=== PATIENT | male | born 1995 | race American Indian/Alaskan Native ===

== ENCOUNTER 2016-09-16 20:11 | Emergency (ER) | payer SELFPAY ==
[2016-09-16 20:35] VITALS: BP 122/80
== END 2016-09-16 20:32 | disposition left against medical advice (07) ==
LOC: ED 20:11
DX: R68.84 Jaw pain (principal); Z53.21 Procedure and treatment not carried out due to patient leaving prior to being seen by health care provider

== ENCOUNTER 2016-09-17 15:06 | Emergency (ER) | payer SELFPAY ==
[2016-09-17] MEDS ORDERED: TORADOL IM ONE (21:02)
--- NOTE | 2016-09-17 21:04 | Emergency Department Report ---
ED ENT HPI - General Chief complaint: Dental/Oral Stated complaint: POSS JAW FRACTURE Time Seen by Provider: 09/17/16 21:00 Source: patient Mode of arrival: Ambulatory Limitations: No Limitations - History of Present Illness Initial comments: Patient reports swelling to the right jaw that started 4 days ago after tussling with a family member. complaint: trauma/injury (right jaw) Onset/Timin -: days(s) Location: other (right jaw) Severity: severe Severity scale (0 -10): 10 Quality: aching Consistency: constant Improves with: none Worsens with: swallowing, other (opening mouth) Context-Epistaxis: other (none) Context- Dental: trauma Context- Ear: other (none) Associated Symptoms: other (right jaw pain with swelling). denies: fever, cough , gum swelling, toothache, pain with swallowing, sore throat, tinnitus, hearing loss, discharge from ear, rhinorrhea - Related Data Previous Rx's Medication Instructions Recorded Last Taken Type Ibuprofen [Motrin 800 MG tab] 800 mg PO Q8HR PRN #30 tablet 09/17/16 Unknown Rx Allergies Allergy/AdvReac Type Severity Reaction Status Date / Time No Known Allergies Allergy Verified 09/17/16 15:44 ED Dental HPI - General Chief complaint: Dental/Oral Stated complaint: POSS JAW FRACTURE Source: patient Mode of arrival: Ambulatory Limitations: No Limitations - Related Data Previous Rx's Medication Instructions Recorded Last Taken Type Ibuprofen [Motrin 800 MG tab] 800 mg PO Q8HR PRN #30 tablet 09/17/16 Unknown Rx Allergies Allergy/AdvReac Type Severity Reaction Status Date / Time No Known Allergies Allergy Verified 09/17/16 15:44 ED Review of Systems ROS: Stated complaint: POSS JAW FRACTURE Other details as noted in HPI Constitutional: denies: chills, diaphoresis, fever, weakness Eyes: denies: eye pain, eye discharge, vision change ENT: other (right jaw swelling and pain). denies: ear pain, throat pain, dental pain, hearing loss, epistaxis Respiratory: denies: cough, orthopnea, shortness of breath, SOB with exertion, SOB at rest, stridor, wheezing Cardiovascular: denies: chest pain, palpitations, dyspnea on exertion, orthopnea , edema, syncope, paroxysmal nocturnal dyspnea Hematological/Lymphatic: denies: easy bleeding, easy bruising, swollen glands ED Past Medical Hx - Past Medical History Previous Medical History?: No - Surgical History Past Surgical History?: No - Social History Smoking Status: Current Every Day Smoker Substance Use Type: None - Medications Home Medications: Home Medications Medication Instructions Recorded Confirmed Last Taken Type Ibuprofen [Motrin 800 MG tab] 800 mg PO Q8HR PRN #30 tablet 09/17/16 Unknown Rx ED Physical Exam - General Limitations: No Limitations General appearance: alert, in no apparent distress - Head Head exam: Present: atraumatic, normocephalic, normal inspection - Eye Eye exam: Present: normal appearance, PERRL, EOMI. Absent: scleral icterus, conjunctival injection, nystagmus, periorbital swelling, periorbital tenderness Pupils: Present: normal accommodation - ENT ENT exam: Present: mucous membranes moist, TM's normal bilaterally, normal external ear exam, other (right facial asymmetry, swelling and tenderness with palpation to the right jaw, no ecchymosis). Absent: mucous membranes dry - Expanded ENT Exam Expanded Ear exam: Present: normal external inspection. Absent: auricular hematoma, auricular trauma Mouth exam: Present: normal external inspection, tongue normal, other (positive tongue blade test). Absent: drooling, trismus, muffled voice, tongue elevation , laceration Teeth exam: Present: other (misalignment of teeth on the right dentition, no step-off, protrusion or lateral excursion of the right jaw) Throat exam: Positive: normal inspection. Negative: tonsillar erythema, tonsillomegaly, tonsillar exudate, R peritonsillar mass, L peritonsillar mass - Neck Neck exam: Present: normal inspection, full ROM. Absent: tenderness, meningismus, lymphadenopathy, thyromegaly - Respiratory Respiratory exam: Present: normal lung sounds bilaterally. Absent: respiratory distress, wheezes, rales, rhonchi, stridor, chest wall tenderness, accessory muscle use, decreased breath sounds, prolonged expiratory - Cardiovascular Cardiovascular Exam: Present: regular rate, normal rhythm, normal heart sounds. Absent: systolic murmur, diastolic murmur, rubs, gallop, clicks, JVD, S3, S4 - Skin Skin exam: Present: warm, dry, intact, normal color. Absent: rash, cyanosis, diaphoretic, erythema, urticaria, vesicles, petechiae, pallor, abrasion, ecchymosis ED Course Vital Signs 09/17/16 09/17/16 09/17/16 15:38 20:28 21:28 Temperature 98.9 F Pulse Rate 70 Respiratory 16 18 18 Rate Blood Pressure 118/80 Blood Pressure [Left] O2 Sat by Pulse 99 97 Oximetry 09/17/16 23:15 Temperature 99.0 F Pulse Rate 60 Respiratory 20 Rate Blood Pressure Blood Pressure 113/69 [Left] O2 Sat by Pulse 100 Oximetry - Reevaluation(s) Reevaluation #1: 09/17/16 21:03 analgesic and radiology study ordered ED Medical Decision Making - Radiology Data Radiology results: image reviewed EXAM: CT FACIAL BONES WO CON HISTORY: right jaw with pain/swelling/wrestling TECHNIQUE: Spiral CT scanning of the facial bones with multiplanar reformations. PRIORS: None. FINDINGS: No acute fracture. Mandible, zygomatic arches, orbits, paranasal sinuses, and pterygoid plates appear intact. Optic globes grossly intact. Diffuse soft tissue edema or contusion over the right mandible. IMPRESSION: 1. No acute fracture. - Medical Decision Making During the course of ED, analgesics and radiology studies were ordered. The imaging study revealed Diffuse soft tissue edema or contusion over the right mandible. No acute fracture. Patient reports symptomatic relief from medication given in the ED. He was sent home with prescription for Ibuprofen, instructed to follow with selective referrals given at discharge, he verbalize understanding - Differential Diagnosis Right mandible contusion, Right mandible fracture Critical care attestation.: If time is entered above; I have spent that time in minutes in the direct care of this critically ill patient, excluding procedure time. ED Disposition Clinical Impression: Contusion of mandibular joint area Qualifiers: Encounter type: initial encounter Qualified Code(s): S00.83XA - Contusion of other part of head, initial encounter Disposition: DISCHARGED TO HOME OR SELFCARE Is pt being admited?: No Does the pt Need Aspirin: No Condition: Stable Instructions: Contusion in Adults (ED) Additional Instructions: Take medication as directed. Follow up with the selective referrals given at discharge. Return back to the ED for worsening symptoms or concerns Prescriptions: Ibuprofen [Motrin 800 MG tab] 800 mg PO Q8HR PRN #30 tablet PRN Reason: Pain Referrals: KIANNA VELEZ MD [Primary Care Provider] - 3-5 Days MICHAEL SALDIVAR MD [Staff Physician] - 3-5 Days EMMA OLMOS MD [Staff Physician] - 3-5 Days Forms: Work/School Release Form(ED) Time of Disposition: 23:10
--- NOTE | 2016-09-17 22:29 | Cat Scan Report ---
FINAL REPORT EXAM: CT FACIAL BONES WO CON HISTORY: right jaw with pain/swelling/wrestling TECHNIQUE: Spiral CT scanning of the facial bones with multiplanar reformations. PRIORS: None. FINDINGS: No acute fracture. Mandible, zygomatic arches, orbits, paranasal sinuses, and pterygoid plates appear intact. Optic globes grossly intact. Diffuse soft tissue edema or contusion over the right mandible. IMPRESSION: 1. No acute fracture.
[2016-09-17 23:32] VITALS: BP 113/69
== END 2016-09-17 23:34 | disposition home or self-care (01) ==
LOC: ED 15:06
DX: S00.83XA Contusion of other part of head, initial encounter (principal); F17.200 Nicotine dependence, unspecified, uncomplicated; X58.XXXA Exposure to other specified factors, initial encounter; Y93.9 Activity, unspecified; Y92.9 Unspecified place or not applicable; Y99.9 Unspecified external cause status
CPT/HCPCS: 70486; 96372; 99283; J1885

== ENCOUNTER 2017-06-04 02:35 | Emergency (ER) | payer SELFPAY ==
[2017-06-04 06:44] LABS: Basophils % (Auto) 0.9 % (0.0-1.8); Eosinophils % (Auto) 2.1 % (0.0-4.3); Hematocrit 43.5 % (35.5-45.6); Hemoglobin 14.1 gm/dl (11.8-15.2); Mean Corpuscular HGB Conc 32 % (32-34); Mean Corpuscular Hemoglobin 29 pg (28-32); Mean Corpuscular Volume 90 fl (84-94); Platelet Count 243 K/mm3 (140-440); Red Blood Count 4.82 M/mm3 (3.65-5.03); Red Cell Distribution Width 13.5 % (13.2-15.2); White Blood Count 4.7 K/mm3 (4.5-11.0)
[2017-06-04 07:01] LABS: Blood Urea Nitrogen 15 mg/dL (9-20); Calcium 9.4 mg/dL (8.4-10.2); Carbon Dioxide 30 mmol/L (22-30); Creatine Kinase 147 units/L (55-170); Glucose 94 mg/dL (75-100)
[2017-06-04 07:02] LABS: Anion Gap 17 mmol/L; Chloride 102.2 mmol/L (98-107); Potassium 4.7 mmol/L (3.6-5.0); Sodium 144 mmol/L (137-145)
--- NOTE | 2017-06-04 08:20 | Emergency Department Report ---
HPI - General Chief Complaint: Chest Pain Time Seen by Provider: 06/04/17 08:10 - [facility] HPI: Room 29 The patient is a 21-year-old male presenting with a chief complaint of chest pain. The patient states for the past 2 months he's had intermittent pain across his chest has been sharp in nature. Patient states he mostly notices the pain whenever he is smoking. Patient states he has a pain daily ( approximately 2-3 times a day) intermittently for 2 months. Patient denies shortness of breath, nausea/vomiting or cough. Patient currently denies chest pain Location: Chest Duration: Intermittent 2 months Quality: Sharp Severity: Currently 0/10 Modifying factors: [see above] Context: [see above] Mode of transportation: Unknown ED Past Medical Hx - Past Medical History Previous Medical History?: No - Surgical History Past Surgical History?: No - Family History Family history: no significant - Social History Smoking Status: Current Every Day Smoker (1 pack per day) Substance Use Type: None (denies illicit drug use), Alcohol (rarely) - Medications Home Medications: Home Medications Medication Instructions Recorded Confirmed Last Taken Type Ibuprofen [Motrin 800 MG tab] 800 mg PO Q8HR PRN #30 tablet 09/17/16 Unknown Rx Ibuprofen [Motrin 800 MG tab] 800 mg PO Q8HR PRN #20 tablet 06/04/17 Unknown Rx ED Review of Systems ROS: Stated complaint: CP Other details as noted in HPI Comment: All other systems reviewed and negative Constitutional: denies: chills, fever Eyes: denies: eye pain, eye discharge, vision change ENT: denies: ear pain, throat pain Respiratory: denies: cough, shortness of breath, wheezing Cardiovascular: chest pain. denies: palpitations Endocrine: no symptoms reported Gastrointestinal: denies: abdominal pain, nausea, diarrhea Genitourinary: denies: urgency, dysuria Musculoskeletal: denies: back pain, joint swelling, arthralgia Skin: denies: rash, lesions Neurological: denies: headache, weakness, paresthesias Psychiatric: denies: anxiety, depression Hematological/Lymphatic: denies: easy bleeding, easy bruising Physical Exam - Physical Exam Vital Signs: Vital Signs 06/04/17 06/04/17 02:54 05:50 Temperature 97.8 F 97.6 F Pulse Rate 58 L 54 L Respiratory 18 16 Rate Blood Pressure 113/76 Blood Pressure 103/53 [Left] O2 Sat by Pulse 99 100 Oximetry Physical Exam: GENERAL: The patient is well-developed well-nourished male lying on stretcher asleep not appearing to be in acute distress. Patient awakens easily and becomes alert and oriented HEENT: Normocephalic. Atraumatic. Extraocular motions are intact. Patient has moist mucous membranes. NECK: Supple. Trachea midline CHEST/LUNGS: Clear to auscultation. There is no respiratory distress noted. HEART/CARDIOVASCULAR: Regular. There is no tachycardia. There is no gallop rub or murmur. ABDOMEN: Abdomen is soft, nontender. Patient has normal bowel sounds. There is no abdominal distention. SKIN: There is no rash. There is no edema. There is no diaphoresis. NEURO: The patient is awake, alert, and oriented. The patient is cooperative. The patient has normal speech MUSCULOSKELETAL: There is no evidence of acute injury. ED Course Vital Signs 06/04/17 06/04/17 02:54 05:50 Temperature 97.8 F 97.6 F Pulse Rate 58 L 54 L Respiratory 18 16 Rate Blood Pressure 113/76 Blood Pressure 103/53 [Left] O2 Sat by Pulse 99 100 Oximetry ED Medical Decision Making - Lab Data Result diagrams: 06/04/17 06:14 06/04/17 06:14 Laboratory Tests 06/04/17 06/04/17 06/04/17 06:14 06:14 08:23 WBC 4.7 RBC 4.82 Hgb 14.1 Hct 43.5 MCV 90 MCH 29 MCHC 32 RDW 13.5 Plt Count 243 Lymph % (Auto) 38.6 H [place] % (Auto) 10.4 H Eos % (Auto) 2.1 Baso % (Auto) 0.9 Lymph # 1.8 [place] # 0.5 Eos # 0.1 Baso # 0.0 Seg Neutrophils % 48.0 Seg Neutrophils # 2.3 D-Dimer < 135.00 Carbon Dioxide 30 BUN 15 Creatinine 1.0 Estimated GFR > 60 BUN/Creatinine Ratio 15.00 Glucose 94 Calcium 9.4 Total Creatine Kinase 147 Troponin T < 0.010 Sodium 144, potassium 4.7, chloride 102.2 - EKG Data -: EKG Interpreted by Mo EKG shows normal: sinus rhythm Rate: normal - EKG Data When compared to previous EKG there are: previous EKG unavailable Interpretation: other (no ischemic changes seen) - Radiology Data Radiology results: image reviewed (chest x-ray) interpreted by me: Chest x-ray-no focal infiltrates, no pneumothorax - Differential Diagnosis PE, pneumonia, pleurisy, costochondritis, ACS, GERD Critical care attestation.: If time is entered above; I have spent that time in minutes in the direct care of this critically ill patient, excluding procedure time. ED Disposition Clinical Impression: Atypical chest pain Disposition: - TO HOME OR SELFCARE Is pt being admited?: No Does the pt Need Aspirin: No Condition: Stable Instructions: Chest Pain (ED), Costochondritis (ED) Additional Instructions: Return to the emergency department immediately should you develop worsening symptoms, fever, inability to tolerate food or liquid or any other concerns. Prescriptions: Ibuprofen [Motrin 800 MG tab] 800 mg PO Q8HR PRN #20 tablet PRN Reason: Pain Referrals: GUMARO HUDSON MD [Staff Physician] - 3-5 Days Time of Disposition: 09:25
--- NOTE | 2017-06-04 08:58 | XRay Report ---
CHEST 2 VIEWS INDICATION: Chest pain. COMPARISON: None similar. FINDINGS: PA and lateral chest radiographs demonstrate normal cardiomediastinal silhouette. Clear lungs. Thoracic spine straightening. CONCLUSION: No acute disease in the chest. Thank you for the opportunity to participate in this patient's care.
[2017-06-04 09:37] VITALS: BP 103/65
== END 2017-06-04 09:38 | disposition home or self-care (01) ==
LOC: ED 02:35
DX: R07.89 Other chest pain (principal); F17.200 Nicotine dependence, unspecified, uncomplicated
CPT/HCPCS: 36415; 71020; 80048; 82550; 84484; 85025; 85379; 93005; 93010

== ENCOUNTER 2017-06-30 23:34 | Emergency (ER) | payer SELFPAY ==
--- NOTE | 2017-07-01 06:27 | Emergency Department Report ---
HPI - General Chief Complaint: Extremity Injury, Upper Time Seen by Provider: 07/01/17 05:20 - HPI HPI: There is a 21-year-old male who presents to ED for cast removal status post fracture of his right fourth and fifth metacarpal bone. Patient states he was sitting on [place] 4 days ago and was told he had a fracture of his fourth and fifth digit WAS applied. Patient states he has not followed up with orthopedic doctor. Patient states he would like to have the cast removed He denies any recent injuries to the hand. He denies fevers/chills/nausea/ vomiting in the problems ED Past Medical Hx - Past Medical History Previous Medical History?: No - Surgical History Past Surgical History?: No - Social History Smoking Status: Current Every Day Smoker Substance Use Type: None - Medications Home Medications: Home Medications Medication Instructions Recorded Confirmed Last Taken Type Ibuprofen [Motrin 800 MG tab] 800 mg PO Q8HR PRN #20 tablet 06/04/17 Unknown Rx Cyclobenzaprine [Flexeril] 10 mg PO QHS PRN #20 tablet 07/01/17 Unknown Rx Ibuprofen [Motrin 800 MG tab] 800 mg PO Q8HR PRN #30 tablet 07/01/17 Unknown Rx ED Review of Systems ROS: Stated complaint: R WRIST INJURY Other details as noted in HPI Constitutional: denies: chills, fever Eyes: denies: eye pain, eye discharge, vision change ENT: denies: ear pain, throat pain Respiratory: denies: cough, shortness of breath, wheezing Cardiovascular: denies: chest pain, palpitations Endocrine: no symptoms reported Gastrointestinal: denies: abdominal pain, nausea, diarrhea Genitourinary: denies: urgency, dysuria Musculoskeletal: arthralgia, myalgia. denies: back pain, joint swelling Skin: denies: rash, lesions Neurological: denies: headache, weakness, paresthesias Psychiatric: denies: anxiety, depression Hematological/Lymphatic: denies: easy bleeding, easy bruising Physical Exam - Physical Exam Vital Signs: Vital Signs 07/01/17 00:04 Temperature 98.1 F Pulse Rate 79 Respiratory 20 Rate Blood Pressure 121/75 O2 Sat by Pulse 99 Oximetry Physical Exam: GENERAL: Alert and oriented x3, no apparent distress, Normal Gait, atraumatic. HEAD: Head is normocephalic and a-traumatic. NECK: Supple. Non edematous, No carotid bruits. No lymphadenopathy or thyromegaly. No C-spine tenderness LUNGS: Symetrical with respiration, No wheezing, no rales or crackles, CTAB. HEART: S1, S2 present, regular rate and rhythm without murmur, no rubs, no gallops. Non tender to palpation EXTREMITIES/MUSCULOSKELETAL: No cyanosis, clubbing, rash, lesions or edema. Full ROM bilaterally. OCL cast seen on right hand. Nonedematous, patient couldn't wiggle fingers and move his hand without problem NEUROLOGIC: The patient is cooperative with no focal neurologic deficits. Cranial nerves II through XII are grossly intact. Normal speech. Normal sensation in bilateral upper and lower extremities, No loss of sensation, SKIN: Warm and dry, No lesions, No ulceration or induration present. ED Course Vital Signs 07/01/17 00:04 Temperature 98.1 F Pulse Rate 79 Respiratory 20 Rate Blood Pressure 121/75 O2 Sat by Pulse 99 Oximetry ED Medical Decision Making - Medical Decision Making 21-year-old male presents status post hand fracture 4 days ED course: Discussed patient is to follow-up with Orthopedic doctor. Discussed patient to continue taking the medications as prescribed. Discussed with patient OCL cast cannot be taken off until seen by orthopedic doctor. Vital signs are normal patient is able to wiggle finger cast, capillary refill 2 seconds. Patient understands instructions given and states he will follow up Critical care attestation.: If time is entered above; I have spent that time in minutes in the direct care of this critically ill patient, excluding procedure time. ED Disposition Clinical Impression: Boxer's fracture with routine healing Qualifiers: Fracture type: closed Qualified Code(s): S62.339D - Displaced fracture of neck of unspecified metacarpal bone, subsequent encounter for fracture with routine healing Disposition: DC-01 TO HOME OR SELFCARE Is pt being admited?: No Does the pt Need Aspirin: No Condition: Stable Instructions: Cast Care (ED), Hand Fracture (ED) Additional Instructions: Make sure that you should follow-up with Dr. Rendon orthopedic doctor Continue to keep hand elevated and ice as needed Prescriptions: Cyclobenzaprine [Flexeril] 10 mg PO QHS PRN #20 tablet PRN Reason: Muscle Spasm Ibuprofen [Motrin 800 MG tab] 800 mg PO Q8HR PRN #30 tablet PRN Reason: Pain Referrals: PRIMARY CAREMD [Primary Care Provider] - 3-5 Days KRISTIE RENDON MD [Staff Physician] - 3-5 Days Forms: Work/School Release Form(ED) Time of Disposition: 06:30
[2017-07-01 07:24] VITALS: BP 108/59
--- NOTE | 2017-07-01 07:29 | XRay Report ---
RIGHT WRIST, 3 VIEWS: History: wrist pain, injury. No comparison. A posterior bandage has been applied which degrades bony detail. There is severe soft tissue swelling on the dorsum of the hand. Abnormality is suspected at the base of the fourth metacarpal. There may be posterior subluxation of the fourth metatarsal base with respect to the hamate bone. Subtle fracture lines are suggested at the fourth metatarsal base on one of the projections. The remaining bony structures and joint spaces are unremarkable. IMPRESSION: Limited exam with non-standard views and bandages. Abnormality at the fourth metacarpal base is suspected. Consider repeat exam without bandages and standard views or CT. See above.
== END 2017-07-01 07:23 | disposition home or self-care (01) ==
LOC: ED 23:34
DX: S62.101A Fracture of unspecified carpal bone, right wrist, initial encounter for closed fracture (principal); F17.210 Nicotine dependence, cigarettes, uncomplicated; X58.XXXA Exposure to other specified factors, initial encounter; Y93.89 Activity, other specified; Y92.89 Other specified places as the place of occurrence of the external cause; Y99.8 Other external cause status
CPT/HCPCS: 99283

== ENCOUNTER 2017-07-28 01:09 | Emergency (ER) | payer SELFPAY ==
[2017-07-28 01:24] VITALS: BP 118/71
--- NOTE | 2017-07-28 03:56 | Emergency Department Report ---
Upper Extremity - HPI Chief Complaint: Extremity Injury, Upper Stated Complaint: ABD PAIN & R HAND PAIN Time Seen by Provider: 07/28/17 03:55 Upper Extremity: Right Hand (right hand fracture 1 month ago) Occurred When: >5 Days Symptoms: Yes Pain with Movement, No Deformity, No Limited Range of Movement, No Numbness, No Weakness, No Swelling Other History: 21-year-old male past medical history none presents with complaint of one month of right hand pain. Patient states that he was diagnosed with a knuckle fracture approximately one month ago states that he removed his splint/cast prematurely and has been experiencing continual pain in his fifth metacarpal region for several weeks. Patient denies any other injuries. States he is able to flex and extend wrist and move most fingers well without difficulty except for his fifth MCP region. Some visible swelling in this area. Has not followed up with orthopedics or primary care. States he received care at another hospital. ED Review of Systems ROS: Stated complaint: ABD PAIN & R HAND PAIN Other details as noted in HPI Constitutional: denies: chills, fever Eyes: denies: eye pain, eye discharge, vision change ENT: denies: ear pain, throat pain Respiratory: denies: cough, shortness of breath, wheezing Cardiovascular: denies: chest pain, palpitations Endocrine: no symptoms reported Gastrointestinal: denies: abdominal pain, nausea, diarrhea Genitourinary: denies: urgency, dysuria Musculoskeletal: as per HPI (right hand pain one month). denies: back pain, joint swelling, arthralgia Skin: denies: rash, lesions Neurological: denies: headache, weakness, paresthesias Psychiatric: denies: anxiety, depression Hematological/Lymphatic: denies: easy bleeding, easy bruising ED Past Medical Hx - Past Medical History Previous Medical History?: No - Surgical History Past Surgical History?: No - Social History Smoking Status: Current Every Day Smoker Substance Use Type: Alcohol - Medications Home Medications: Home Medications Medication Instructions Recorded Confirmed Last Taken Type Ibuprofen [Motrin 800 MG tab] 800 mg PO Q8HR PRN #20 tablet 06/04/17 Unknown Rx Cyclobenzaprine [Flexeril] 10 mg PO QHS PRN #20 tablet 07/01/17 Unknown Rx Ibuprofen [Motrin 800 MG tab] 800 mg PO Q8HR PRN #30 tablet 10/19/17 Unknown Rx Naproxen 500 mg PO BID PRN #30 tablet 07/28/17 Unknown Rx Upper Extremity Exam - Exam General: Vital signs noted. No distress. Alert and acting appropriately. Head and Torso: No HEENT Abnormality, No Neck Tenderness, No Chest/Lungs Abnormality, No Abdominal Tenderness, No Back Tenderness Shoulder Exam: Yes Normal Range of Motion in Shoulder, No Shoulder Tenderness, No Clavicle Tenderness, No Shoulder Deformity, No AC Joint Tenderness Arm Exam: No Arm/Humerus Tenderness, No Arm Deformity Elbow: No Elbow Tenderness, No Normal Range of Motion in Elbow, No Elbow Deformity Forearm: No Forearm Tenderness, No Forearm Deformity, No Pain with Pronation, No Pain with Supination Wrist: Yes Normal ROM in Wrist (wrist flexion and extension intact), No Wrist Tenderness, No Wrist Deformity, No Snuffbox Tenderness, No Pain with Axial Thumb Compression Hand: Yes Normal ROM in Digit(s) (range of motion DIP is PIPs and MCPs intact on exam), No Hand Tenderness (some tenderness at right distal MCP joint fifth metacarpal), No Hand Deformity, No Digit Tenderness, No Digit(s) Deformity, No Tendon Dysfunction CMS Exam: Yes Normal Distal Pulses (distal capillary refill all fingers less than 1 second, distal radial and ulnar pulses intact, distal sensation intact all fingers), Yes Normal Capillary Refill, Yes Normal Distal Sensation, No Broken Skin Hand L/R Back: 1 - Some discomfort on palpation here ED Course Vital Signs 07/28/17 01:16 Temperature 97.7 F Pulse Rate 69 Respiratory 18 Rate Blood Pressure 118/71 O2 Sat by Pulse 98 Oximetry ED Medical Decision Making - Medical Decision Making A/P: Chronic right hand pain 1-x-ray shows no fracture, patient placed in ulnar gutter Velcro splint 2-naproxen when necessary for pain 3- follow-up with orthopedics and primary care. Hand is neurovascularly intact range of motion intact no snuffbox tenderness on exam Critical care attestation.: If time is entered above; I have spent that time in minutes in the direct care of this critically ill patient, excluding procedure time. ED Disposition Clinical Impression: Right hand pain Disposition: DC-01 TO HOME OR SELFCARE Is pt being admited?: No Does the pt Need Aspirin: No Condition: Stable Instructions: Splint Care (ED), Arthralgia (ED), RICE Therapy (ED) Prescriptions: Naproxen 500 mg PO BID PRN #30 tablet PRN Reason: Pain Referrals: [facility] [Provider Group] - 3-5 Days Time of Disposition: 04:54
--- NOTE | 2017-07-28 04:13 | XRay Report ---
FINAL REPORT EXAM: XR HAND 3+V RT HISTORY: right hand fracture, pt took off cast prematurely TECHNIQUE: Three views of the right hand were obtained. There are no previous studies available for comparison. FINDINGS: There is no evidence of acute fracture or soft tissue injury. The wrist joint is not show any acute changes. IMPRESSION: No acute findings.
== END 2017-07-28 05:11 | disposition home or self-care (01) ==
LOC: ED 01:09
DX: M79.641 Pain in right hand (principal); F17.200 Nicotine dependence, unspecified, uncomplicated